=== PATIENT | male | born 1960 | race Caucasian/White ===

== ENCOUNTER 2022-10-27 12:59 | Observation (INO) | payer OTHER ==
[2022-10-27 13:09] VITALS: BMI 21.9
[2022-10-27] MEDS ORDERED: ACETAMINOPHEN 1000 MG/100 ML BAG IVPB ONE (14:23)
[2022-10-27] MEDS ORDERED: SODIUM CHLORIDE 1,000 ML IV STA (14:26)
[2022-10-27] MEDS ORDERED: METOCLOPRAMIDE HCL INJECTION 10 MG/2 ML VIAL IVPUSH ONE (14:26)
[2022-10-27] MEDS ORDERED: ACETAMINOPHEN INJECTION 100 ML IVPB ONE (14:43)
[2022-10-27 14:44] LABS: BASO % 0.3 % (0-2.0); EOS % 1.2 % (0-4.5); HEMATOCRIT 41.2 % (35.4-49); HEMOGLOBIN 14.2 GM/dL (11.7-16.9); LYMPH % 19.1 % (8-40); MCH 29.8 pg (25.7-33.7); MCHC 34.6 g/dl (32.0-35.9); MEAN CELL VOLUME 86.3 fl (80-96); MEAN PLT VOLUME 7.5 fl (7.5-11.1); MONO % 7.8 % (3.8-10.2); NEUT % 71.6 % (42.8-82.8); PLATELET COUNT 275 10^3/uL (134-434); RBC 4.77 M/mm3 (4.00-5.60); RDW 13.4 % (11.9-15.9); WHITE BLOOD COUNT 6.5 K/mm3 (4.0-10.0)
[2022-10-27] MEDS ORDERED: METOCLOPRAMIDE HCL INJECTION 10 MG/2 ML VIAL ONE (14:44)
[2022-10-27 14:53] LABS: URINE APPEARANCE CLEAR; URINE BILIRUBIN NEGATIVE (NEGATIVE); URINE COLOR YELLOW; URINE GLUCOSE (UA) NEGATIVE (NEGATIVE); URINE KETONE NEGATIVE (NEGATIVE); URINE LEUK ESTERASE NEGATIVE (NEGATIVE); URINE NITRITE NEGATIVE (NEGATIVE); URINE PROTEIN NEGATIVE (NEGATIVE); URINE UROBILINOGEN 0.2 mg/dL (0.2-1.0)
[2022-10-27 15:07] LABS: CALCIUM 9.1 mg/dL (8.5-10.1)
[2022-10-27 15:08] LABS: ALBUMIN 4.1 g/dl (3.4-5.0); BLOOD UREA NITROGEN 13.7 mg/dL (7-18)
[2022-10-27 15:11] LABS: CREATININE 1.3 mg/dL (0.55-1.3)
[2022-10-27 15:12] LABS: BILIRUBIN,TOTAL 0.4 mg/dL (0.2-1); TOT PROT 7.2 g/dl (6.4-8.2)
[2022-10-27 20:04] LABS: INR 1.01 (0.83-1.09); PROTHROMBIN TIME (PATIENT) 11.7 SEC (9.7-13.0)
[2022-10-27 20:07] LABS: ACTIVATED PTT 34.7 SECONDS (25.2-36.5)
[2022-10-27] MEDS ORDERED: MELATONIN 5 MG TABLETS PO PRN (21:57)
[2022-10-28] MEDS: ENOXAPARIN NA (PORCINE) 40 MG/0.4 ML DISP.SYRIN SQ SCH ×2 (00:35→09:41)
[2022-10-28 08:03] LABS: BLOOD UREA NITROGEN 14.1 mg/dL (7-18); CALCIUM 8.6 mg/dL (8.5-10.1)
[2022-10-28 08:04] LABS: MAGNESIUM 2.3 mg/dL (1.8-2.4)
[2022-10-28 08:06] LABS: PHOSPHOROUS 3.1 mg/dL (2.5-4.9)
[2022-10-28 08:07] LABS: CREATININE 1.3 mg/dL (0.55-1.3)
[2022-10-28] MEDS ORDERED: MAGNESIUM SULF 50% (8.12 MEQ/2 ML-1 GM VIAL) IVPB ONE (12:21)
[2022-10-28] MEDS: ASPIRIN COATED 81 MG TABLET.EC PO SCH (16:25)
[2022-10-28] MEDS: ACETAMINOPHEN 325 MG TABLET (FP) PO PRN (17:21)
[2022-10-28] MEDS ORDERED: ATORVASTATIN CA 20 MG TABLET (FP) PO SCH (22:00)
[2022-10-29] MEDS: ACETAMINOPHEN 325 MG TABLET (FP) PO PRN ×2 (00:16→12:44)
[2022-10-29 03:26] VITALS: RESP 18
[2022-10-29 07:45] LABS: HEMATOCRIT 38.3 % (35.4-49); HEMOGLOBIN 13.4 GM/dL (11.7-16.9); MCH 30.1 pg (25.7-33.7); MCHC 34.9 g/dl (32.0-35.9); MEAN PLT VOLUME 7.1 fl (7.5-11.1); PLATELET COUNT 237 10^3/uL (134-434); RBC 4.46 M/mm3 (4.00-5.60); WHITE BLOOD COUNT 6.3 K/mm3 (4.0-10.0)
[2022-10-29 08:18] LABS: ALBUMIN 3.5 g/dl (3.4-5.0); CALCIUM 8.8 mg/dL (8.5-10.1)
[2022-10-29 08:19] LABS: MAGNESIUM 2.4 mg/dL (1.8-2.4)
[2022-10-29 08:21] LABS: BILIRUBIN,TOTAL 0.6 mg/dL (0.2-1); CREATININE 1.3 mg/dL (0.55-1.3); TOT PROT 6.3 g/dl (6.4-8.2)
[2022-10-29] MEDS ORDERED: ATORVASTATIN CA 40 MG TABLET (FP) PO SCH (11:07)
[2022-10-29] MEDS: ASPIRIN COATED 81 MG TABLET.EC PO SCH (12:46)
[2022-10-29] MEDS: ENOXAPARIN NA (PORCINE) 40 MG/0.4 ML DISP.SYRIN SQ SCH (12:46)
[2022-10-29 15:20] VITALS: BP 135/77; PULSE 64; TEMP 98.7
== END 2022-10-29 18:59 | disposition home or self-care (01) ==
LOC: JER 12:59 → JERBED 18:31 → J4W 21:47
PROVIDERS: ADMIT Internal Medicine; ATTEND Internal Medicine
PROC: 3E033NZ Introduction of Analgesics, Hypnotics, Sedatives into Peripheral Vein, Percutaneous Approach (ICD-10-PCS; principal; 2022-10-27)
PROC: 3E033GC Introduction of Other Therapeutic Substance into Peripheral Vein, Percutaneous Approach (ICD-10-PCS; 2022-10-27)
PROC: 3E0337Z Introduction of Electrolytic and Water Balance Substance into Peripheral Vein, Percutaneous Approach (ICD-10-PCS; 2022-10-27)
DX: R51.9 Headache, unspecified (principal); R07.9 Chest pain, unspecified; E78.5 Hyperlipidemia, unspecified; M54.2 Cervicalgia; R11.2 Nausea with vomiting, unspecified; R42 Dizziness and giddiness
CPT/HCPCS: 0241U-QW; 36415; 70450-TC; 70496-TC; 70498-TC; 71045-TC-FY; 80048; 80053; 80061; 81003; 82962; 83036; 83735; 84100; 84443; 84484; 85025; 85027; 85610; 85730; 87086; 93005; 93010; 93351; 96361; 96372; 96374; 96375; 97116-GP; 97161-GP; 99285-25; G0378

== ENCOUNTER 2023-12-16 04:24 | Day surgery (SDC) | payer OTHER ==
[2023-12-09 15:39] VITALS: BMI 21.9
[2023-12-16 11:12] VITALS: RESP 18
[2023-12-16] MEDS ORDERED: MIDAZOLAM HCL 2 MG/2 ML SINGLE DOSE VIAL ONE (13:30)
[2023-12-16 14:51] VITALS: BP 143/76; PULSE 69; TEMP 97.8
== END 2023-12-16 16:45 | disposition home or self-care (01) ==
LOC: JASU-SURG 04:24
PROVIDERS: ATTEND Urology
PROC: 0TF3XZZ Fragmentation in Right Kidney Pelvis, External Approach (ICD-10-PCS; principal; 2023-12-16 13:00)
DX: N20.0 Calculus of kidney (principal)